=== PATIENT | female | born 1975 | race Caucasian/White ===

== ENCOUNTER 2017-10-31 01:56 | Emergency (ER) | payer OTHER ==
[~2017-10-31] VITALS: Ht 172.7 cm; Wt 70.3 kg
[~2017-10-31 01:56] MED LIST: ACETAMINOPHEN-1 EAC1 PO; BACTRIM DS TAB1 EACH PO; CELEXA40 MG PO; DOXYCYCLINE 10100 M1 PO; IBUPROFEN 800800 M1 PO; KLOR-CON 1010 MEQ PO; LIDOCAINE VISC100 M1 SWISH&SPIT; MEDROLDOSEPACK PO; NORCO 5-325 TA1 EACH PO; ONDANSETRON HCL4 M2 PO; PENICILLIN V P500 MG PO; POTASSIUM20 PO; SEROQUEL 25 MG25 M1 PO; SERTRALINE HCL50 MG PO; SUBOXONE 12 MG1 EACH; SUBOXONE 8 MG-1 EAC2; TRAMADOL 50 MG50 MG PO; WELLBUTRIN 100100 MG PO; XANAX 0.5 MG0.5 M1 PO; XANAX 1 MG TABLE1 MG PO; XANAX XR2 MG PO; XANAX1 MG PO; ZOFRAN ODT4 MG PO; ZOLOFT100 MG PO; ZPAK PO
[2017-10-31 02:01] VITALS: BP 137/87
[2017-10-31] MEDS ORDERED: SUBOXONE 8 MG-1 EAC3 SUBLING (02:14)
[2017-10-31] MEDS ORDERED: BACTRIM DS TAB1 EACH PO (02:18)
[2017-10-31] MEDS ORDERED: PREDNISONE 20 M20 M1 PO (02:18)
[2017-10-31] MEDS ORDERED: IBUPROFEN 800800 MG PO (02:22)
== END 2017-10-31 02:25 | disposition home or self-care (01) ==
LOC: M.ERS 01:56
DX: S00.262A Insect bite (nonvenomous) of left eyelid and periocular area, initial encounter (principal); F41.9 Anxiety disorder, unspecified; K50.90 Crohn's disease, unspecified, without complications; F17.200 Nicotine dependence, unspecified, uncomplicated; Z88.6 Allergy status to analgesic agent; W57.XXXA Bitten or stung by nonvenomous insect and other nonvenomous arthropods, initial encounter; Y93.89 Activity, other specified; Y92.89 Other specified places as the place of occurrence of the external cause; Y99.8 Other external cause status

== ENCOUNTER 2017-11-04 17:17 | Emergency (ER) | payer OTHER ==
[~2017-11-04] VITALS: Ht 165.1 cm; Wt 72.6 kg
[~2017-11-04 17:17] MED LIST changes: +IBUPROFEN 800800 MG PO; +PREDNISONE 20 M20 M1 PO; +SUBOXONE 8 MG-1 EAC3 SUBLING
[2017-11-04] MEDS ORDERED: CLEOCIN HCL150 MG PO (18:20)
[2017-11-04 18:33] VITALS: BP 129/95
== END 2017-11-04 18:33 | disposition left against medical advice (07) ==
LOC: M.ERS 17:17
DX: H00.034 Abscess of left upper eyelid (principal); F41.9 Anxiety disorder, unspecified; K50.90 Crohn's disease, unspecified, without complications; Z88.6 Allergy status to analgesic agent